=== PATIENT | female | born 1965 | race Caucasian/White ===

== ENCOUNTER → 2016-12-05 | Outpatient (CLI) | payer OTHER | LOC: BMCIMAGING 08:16 | PROVIDERS: ATTEND Internal Medicine | DX: Z12.31 Encounter for screening mammogram for malignant neoplasm of breast (principal) | CPT/HCPCS: G0202 ==

== ENCOUNTER 2017-04-10 12:12 | Emergency (ER) | payer OTHER ==
[2017-04-10 12:22] VITALS: RESP 18
--- NOTE | 2017-04-10 13:10 | EDPHY ---
General - History Smoking Status: Never smoked Narrative: CHIEF COMPLAINT: Shortness of breath HISTORY OF PRESENT ILLNESS: Patient complains of intermittent shortness of breath. This originally started on new 's [place]. She says she was at a theater when she became diaphoretic, short of breath, nauseated and lightheaded. She had no chest pain. EMS was activated and she was transported to [facility]. Blood pressure was reportedly 70/30. She was evaluated and discharged home. No clear etiology. She has been persistently short of breath at times in the interim. Mostly with activity but occasionally at rest. No chest pain. No fever. No vomiting. She has had multiple flights of varying durations including [place]. No other associated complaints or modifying factors. She has yet to follow up with primary care physician REVIEW OF SYSTEMS: Ten systems reviewed and are negative unless otherwise noted in the HPI PCP: Dr. Pillai SPECIALISTS: None PAST MEDICAL HISTORY: Anemia PAST SURGICAL HISTORY: No recent surgeries SOCIAL HISTORY: Nonsmoker. 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 Airway patent Neck: Normal inspection, supple, non-tender Respiratory: Lungs are clear to auscultation. No wheezing, rhonchi or crackles Cardiovascular: Regular rate and rhythm. No murmur. Radial pulses are symmetric at 2+. Gastrointestinal: Abdomen is soft and nontender Back: non-tender, no bony abnormalities Neurological: Cranial nerves 2-12 grossly intact. A&O, nonfocal, normal gait. Strength symmetric Skin: Warm and dry, no rash. No petechiae or purpura Extremities: Nontender, no pedal edema. No erythema of the extremities. No palpable cords. No pain with passive dorsiflexion of the ankles. Psychiatric: Mood and affect normal DIFFERENTIAL DIAGNOSES: Including but not limited to dyspnea, PE, congestive heart failure, pleural effusion, pulmonary edema, HAPE, anxiety MDM: 1:20 p.m. Intermittent shortness of breath with occasional diaphoresis. No chest pain at any time. She has been intermittently lightheaded without dizziness or syncope. She does have multiple recent long distance flights. She has no discrepancy of circumference, erythema or edema of the extremities. No previous VT. I have ordered cardiac workup, cardiac surgeon, D-dimer. She is in no acute distress and asymptomatic at this time. 1:25 p.m. I have reviewed the documentation of the patient's visit to [facility] using [facility]. They documented normal EKG with a diagnosis of vasovagal syncope. Laboratory studies were within normal limits. Vital signs were within normal sinus rhythm limits. 2:15 p.m. Laboratory studies are all within normal limits. This includes a negative D- dimer. EKG is unremarkable. Orthostatics have been perform and are borderline. Systolic changed by 15 mm. Heart rate changed by 24 beats per minute from supine to standing. I will order 1 L IV fluid. 2:45 p.m. Case discussed with Dr. Wells. Reviewed the laboratory studies EKG and chest x-ray. I do feel the patient has mild vasovagal response. Do not feel she has a PE or any other significant pulmonary findings. Chest x-ray is clear. I do feel she is stable for discharge home. We are in agreement with this plan 3:10 p.m. Patient re-evaluated. I discussed laboratory studies, chest x-ray and EKG findings. I reviewed her [facility] findings with her. She does have mildly positive orthostatics, thus he is receiving 1 L IV fluid. Her shortness of breath is not fully explain but there are no significant findings on examination or studies here today. I do feel she is stable for discharge home. She has an appointment with her primary care physician tomorrow. We discussed ED precautions for worsening shortness of breath any chest pain of any kind, return of syncope. The patient is comfortable this plan and she will be discharged home in stable condition. EKG interpretation: Dr. Wells Sinus rhythm without ischemia. SUPERVISION: Patient was independently examined, but I discussed the case with my secondary supervising physician Dr. Wells (ViniciusHossein) Medical Decision Making: I did not see this patient while she was in the emergency department. However her care was discussed with the PA while the patient was in the department. I agree with treatment plan and management. IM the secondary supervising physician (Shawn Wells) - Diagnostics Imaging Results: Imaging Impressions Chest X-Ray 04/10/17 13:20 Impression: Question minimal bronchitis. Minimal interstitial prominence, which could represent early pulmonary edema, noncardiogenic, or subtle interstitial lung disease. No other findings for acute cardiopulmonary abnormality. - Objective Vital Signs: Initial Vital Signs Temperature (C) 36.9 C 04/10/17 12:20 Heart Rate 73 04/10/17 12:20 Respiratory Rate 18 04/10/17 12:20 Blood Pressure 121/80 H 04/10/17 12:20 O2 Sat (%) 97 04/10/17 12:20 O2 Delivery Mode Room Air Allergies/Adverse Reactions: aspirin Allergy (Verified 04/10/17 12:19) Home Medications: Medication Instructions Recorded Effexor 04/10/17 Wellbutrin 100mg (*) 04/10/17 Laboratory Results: Laboratory Results 04/10/17 13:30 04/10/17 13:30 04/10/17 04/10/17 04/10/17 13:30 13:30 13:30 WBC RBC Hgb Hct MCV MCH MCHC RDW Plt Count MPV Neut % (Auto) Lymph % (Auto) Cuming % (Auto) Eos % (Auto) Baso % (Auto) Nucleat RBC Rel Count Absolute Neuts (auto) Absolute Lymphs (auto) Absolute Monos (auto) Absolute Eos (auto) Absolute Basos (auto) Absolute Nucleated RBC Immature Gran % Immature Gran # PT 13.4 SEC SEC (12.0-15.0) INR 1.00 (0.83-1.16) APTT 25.4 SEC SEC (23.0-38.0) D-Dimer 0.28 ug/mLFEU ug/mLFEU (0.00-0.50) Sodium 140 mEq/L mEq/L (135-145) Potassium 4.1 mEq/L mEq/L (3.5-5.2) Chloride 106 mEq/L mEq/L (97-110) Carbon Dioxide 23 mEq/l mEq/l (22-31) Anion Gap 11 mEq/L mEq/L (8-16) BUN 12 mg/dL mg/dL (7-23) Creatinine 0.7 mg/dL mg/dL (0.6-1.0) Estimated GFR > 60 Glucose 82 mg/dL mg/dL (70-100) Calcium 10.0 mg/dL mg/dL (8.5-10.4) NT-Pro-B Natriuret Pep 79 pg/mL pg/mL (0-125) Lipase 115 IU/L IU/L (23-300) Beta HCG, Qual NEGATIVE 04/10/17 13:30 WBC 7.56 10^3/uL 10^3/uL (3.80-9.50) RBC 4.14 10^6/uL L 10^6/uL (4.18-5.33) Hgb 13.6 g/dL g/dL (12.6-16.3) Hct 39.1 % % (38.0-47.0) MCV 94.4 fL fL (81.5-99.8) MCH 32.9 pg pg (27.9-34.1) MCHC 34.8 g/dL g/dL (32.4-36.7) RDW 12.2 % % (11.5-15.2) Plt Count 298 10^3/uL 10^3/uL (150-400) MPV 9.1 fL fL (8.7-11.7) Neut % (Auto) 55.2 % % (39.3-74.2) Lymph % (Auto) 34.3 % % (15.0-45.0) Cuming % (Auto) 7.3 % % (4.5-13.0) Eos % (Auto) 2.4 % % (0.6-7.6) Baso % (Auto) 0.4 % % (0.3-1.7) Nucleat RBC Rel Count 0.0 % % (0.0-0.2) Absolute Neuts (auto) 4.18 10^3/uL 10^3/uL (1.70-6.50) Absolute Lymphs (auto) 2.59 10^3/uL 10^3/uL (1.00-3.00) Absolute Monos (auto) 0.55 10^3/uL 10^3/uL (0.30-0.80) Absolute Eos (auto) 0.18 10^3/uL 10^3/uL (0.03-0.40) Absolute Basos (auto) 0.03 10^3/uL 10^3/uL (0.02-0.10) Absolute Nucleated RBC 0.00 10^3/uL 10^3/uL (0-0.01) Immature Gran % 0.4 % % (0.0-1.1) Immature Gran # 0.03 10^3/uL 10^3/uL (0.00-0.10) PT INR APTT D-Dimer Sodium Potassium Chloride Carbon Dioxide Anion Gap BUN Creatinine Estimated GFR Glucose Calcium NT-Pro-B Natriuret Pep Lipase Beta HCG, Qual Medications Given: Discontinued Medications Sodium Chloride (Ns) 1,000 mls @ 0 mls/hr IV EDNOW ONE; Wide Open PRN Reason: Protocol Stop: 04/10/17 14:25 Last Admin: 04/10/17 14:30 Dose: 1,000 mls Departure - Departure Disposition: Home, Routine, Self-Care Clinical Impression: Vasovagal response Dyspnea Qualifiers: Dyspnea type: shortness of breath Qualified Code(s): R06.02 - Shortness of breath Condition: Good Instructions: Syncope (ED), Dyspnea (ED) Additional Instructions: 1. Follow up with your primary care physician as scheduled tomorrow 2. ED precautions for any chest pain of any kind, worsening shortness of breath , lightheadedness or syncope Referrals: Lisandra Pillai MD [Primary Care Provider] - As per Instructions
[2017-04-10 13:41] LABS: PLATELET COUNT 298 10^3/uL (150-400)
--- NOTE | 2017-04-10 13:44 | CPEKG ---
Heart Rate: 64 RR Interval: 938 P-R Interval: 188 QRSD Interval: 80 QT Interval: 420 QTC Interval: 434 P Page: 74 QRS Page: -24 T Wave Page: 26 EKG Severity - BORDERLINE ECG - EKG Impression: SINUS RHYTHM EKG Impression: BORDERLINE LEFT AXIS DEVIATION EKG Impression: BORDERLINE R WAVE PROGRESSION, ANTERIOR LEADS Electronically Signed By: Shawn Wells 10-Apr-2017 21:34:26
[2017-04-10 14:01] LABS: PROTIME(PATIENT) 13.4 SEC (12.0-15.0)
[2017-04-10] MEDS ORDERED: NS 1,000 ML IV ONE (14:24)
[2017-04-10 15:23] VITALS: BP 125/76; PULSE 72; TEMP 98.6; O2SAT 99
== END 2017-04-10 15:24 | disposition home or self-care (01) ==
LOC: MERGE 12:12
DX: R06.02 Shortness of breath (principal); R55 Syncope and collapse; E86.0 Dehydration